=== PATIENT | male | born 1995 | race Caucasian/White ===

== ENCOUNTER 2018-11-17 22:28 | Emergency (ER) | payer MEDICAID ==
[~2018-11-17] VITALS: Ht 177.8 cm; Wt 86.0 kg
[2018-11-18 08:22] VITALS: BP 129/63
== END 2018-11-18 08:36 | disposition left against medical advice (07) ==
LOC: ER 22:28
DX: R10.10 Upper abdominal pain, unspecified (principal); Z53.21 Procedure and treatment not carried out due to patient leaving prior to being seen by health care provider

== ENCOUNTER 2018-11-18 09:54 | Emergency (ER) | payer MEDICAID ==
[~2018-11-18] VITALS: Ht 177.8 cm; Wt 85.0 kg
[2018-11-18 12:34] VITALS: BP 145/85
== END 2018-11-18 17:58 | disposition left against medical advice (07) ==
LOC: ER 10:36
DX: R10.9 Unspecified abdominal pain (principal); Z53.21 Procedure and treatment not carried out due to patient leaving prior to being seen by health care provider